=== PATIENT | female | born 1960 | race Caucasian/White ===

== ENCOUNTER 2024-10-16 07:42 | Day surgery (SDC) | payer MEDICARE, OTHER ==
[~2024-10-16] VITALS: Ht 172.7 cm; Wt 115.2 kg
[~2024-10-16 07:42] MED LIST: CO Q100C2 PO; D3 U5000 PO; FURO20TA2 PO; LEVO50TA5 PO; LIDOCAINE 2% 100MG/5ML SDV (FOR ANES.) As Ordered ONE; LOSA100T46 PO; MIDAZOLAM INJ 2MG/2ML VIAL As Ordered ONE; ONDANSETRON 4MG 2ML VIAL As Ordered ONE; VITA100024 PO; fentaNYL 100 MCG/2 ML INJECTION As Ordered ONE; propofoL 200 MG/20 ML VIAL As Ordered ONE
[2024-10-16] MEDS: ceFAZolin SOD 3 GM in DEXTROSE 5% (D5W) MINI-BAG PLU 1... IV ONE (09:48)
[2024-10-16] MEDS ORDERED: ACETAMINOPHEN 1000MG/100ML IV BAG As Ordered ONE (09:55)
[2024-10-16] MEDS: LIDOCAINE 2% 5ML JELLY UROJET As Ordered ONE (09:58)
[2024-10-16] MEDS ORDERED: ePHEDrine SULFATE 25 MG/5 ML(5MG/ML) SYRINGE As Ordered ONE (10:04)
[2024-10-16] MEDS: METHYLENE BLUE 0.5% (5MG/ML) 10 ML AMP (PROVAYBLUE) As Ordered ONE (10:04)
[2024-10-16] MEDS: ISOVUE-300 61% 100ML VIAL As Ordered ONE (10:04)
[2024-10-16 11:41] VITALS: BP 145/73; TEMP 96.4; O2SAT 95
[2024-10-16] MEDS ORDERED: ceFAZolin SOD 3 GM in DEXTROSE 5% (D5W) MINI-BAG PLU 1... IV ONE (14:15)
== END 2024-10-16 11:40 | disposition home or self-care (01) ==
LOC: M SDC 07:42
PROVIDERS: ATTEND Urology
DX: N82.0 Vesicovaginal fistula (principal); I10 Essential (primary) hypertension; E03.9 Hypothyroidism, unspecified; K21.9 Gastro-esophageal reflux disease without esophagitis; Z79.899 Other long term (current) drug therapy
CPT/HCPCS: 52005; 93005; A4215; C1769; J0131; J0690; J1100; J2250; J2405; J3010; Q9967; Q9968

== ENCOUNTER → 2024-11-24 | Day surgery (SDC) | payer MEDICARE, OTHER ==
[~2024-11-24] VITALS: Ht 172.7 cm; Wt 111.6 kg
[~2024-11-24] MED LIST changes: +ACETAMINOPHEN 1000MG/100ML IV BAG As Ordered ONE; +GLYCOPYRROLATE INJ 0.2 MG/ML 2 ML VIAL As Ordered ONE; +HEPARIN SOD (PORCINE) 5000UNITS/ML 1ML VIAL/SYRINGE SQ ONE; +KETOROLAC 30 MG/ML 1ML VIAL As Ordered ONE; +LR 1,000 ML IV SCH; +METOCLOPRAMIDE INJ 10MG/2ML VIAL As Ordered ONE; +ROCURONIUM BROMIDE 50MG/5ML VIAL As Ordered ONE; +SUGAMMADEX SODIUM 500 MG/5 ML VIAL (BRIDION) As Ordered ONE; +THERTAB52 PO; +ceFAZolin SOD 3 GM in DEXTROSE 5% (D5W) MINI-BAG PLU 1... IV ONE
[2024-11-24 11:13] VITALS: BP 149/74; TEMP 97.5; O2SAT 98
== END | disposition home or self-care (01) ==
LOC: M SDC 10:59
PROVIDERS: ATTEND Urology
DX: N82.0 Vesicovaginal fistula (principal); Z53.8 Procedure and treatment not carried out for other reasons
CPT/HCPCS: 36415; 86850; 86900; 86901; J0131; J1100; J1596; J1885; J2405; J2765

== ENCOUNTER 2024-12-31 09:45 | Day surgery (SDC) | payer MEDICARE, OTHER ==
[~2024-12-31] VITALS: Ht 172.7 cm; Wt 112.0 kg
[~2024-12-31 09:45] MED LIST changes: -GLYCOPYRROLATE INJ 0.2 MG/ML 2 ML VIAL As Ordered ONE; -HEPARIN SOD (PORCINE) 5000UNITS/ML 1ML VIAL/SYRINGE SQ ONE; -KETOROLAC 30 MG/ML 1ML VIAL As Ordered ONE; -METOCLOPRAMIDE INJ 10MG/2ML VIAL As Ordered ONE; -MIDAZOLAM INJ 2MG/2ML VIAL As Ordered ONE; -fentaNYL 100 MCG/2 ML INJECTION As Ordered ONE
[2024-12-31] MEDS ORDERED: MIDAZOLAM INJ 2MG/2ML VIAL As Ordered ONE (11:48)
[2024-12-31] MEDS ORDERED: fentaNYL 100 MCG/2 ML INJECTION As Ordered ONE (11:48)
[2024-12-31] MEDS ORDERED: PERCOCET 5MG/325MG TAB PO PRN (12:00)
[2024-12-31] MEDS: ceFAZolin SOD 2 GM IV ONCE IV ONE (12:15)
[2024-12-31] MEDS ORDERED: HYDROmorphone HCL 2MG/ML 1ML VIAL As Ordered ONE (12:39)
[2024-12-31] MEDS ORDERED: PHENYLephrine 500MCG 5ML (100MCG/ML) SYRINGE As Ordered ONE (12:43)
[2024-12-31] MEDS ORDERED: ePHEDrine SULFATE 25 MG/5 ML(5MG/ML) SYRINGE As Ordered ONE (12:43)
[2024-12-31] MEDS: HEPARIN SOD (PORCINE) 5000UNITS/ML 1ML VIAL/SYRINGE SQ ONE (12:47)
[2024-12-31] MEDS ORDERED: KETOROLAC 30 MG/ML 1ML VIAL As Ordered ONE (14:51)
[2024-12-31] MEDS ORDERED: fentaNYL 100 MCG/2 ML INJECTION IV PRN (15:00)
[2024-12-31] MEDS ORDERED: oxyCODONE 5MG TAB PO PRN (15:00)
[2024-12-31] MEDS ORDERED: ONDANSETRON 4MG 2ML VIAL IV PRN (15:00)
[2024-12-31] MEDS: LIDOCAINE 1% MDV 20ML VIAL As Ordered ONE (15:11)
[2024-12-31] MEDS ORDERED: HOME MED LIST COMPLETE! XX SCH (15:50)
[2024-12-31 15:59] LABS: HEMATOCRIT 38.5 % (36.0-47.0); HEMOGLOBIN 12.7 g/dl (12.0-15.5); MEAN CORPUSCULAR HEMOGLOBIN 29.1 pg (27.0-33.0); MEAN CORPUSCULAR VOLUME 88.3 fl (80.0-96.0); PLATELET COUNT, AUTOMATED 220 10^3/uL (150-450); RED BLOOD COUNT 4.36 10^6/uL (4.00-5.40); WHITE BLOOD COUNT 5.7 10^3/uL (4.0-10.0)
[2024-12-31] MEDS: NS 500 ML IV SCH (16:00)
[2024-12-31 16:15] VITALS: BP 137/69; TEMP 97; O2SAT 100
[2024-12-31 16:23] LABS: BLOOD UREA NITROGEN 16 MG/DL (9-23); CARBON DIOXIDE LEVEL 30 MMOL/L (20-31); CHLORIDE LEVEL 106 MMOL/L (98-107); GLOMERULAR FILTRATION RATE > 90.0 (>45); GLUCOSE, FASTING 133 MG/DL (74-106); POTASSIUM SERUM 4.1 MMOL/L (3.5-5.1); SODIUM LEVEL 142 MMOL/L (136-145)
[2024-12-31 16:45] VITALS: BP 113/68; TEMP 97.2; O2SAT 97
[2024-12-31 17:15] VITALS: BP 118/67; TEMP 97.2; O2SAT 91
[2024-12-31 18:15] VITALS: BP 108/65; TEMP 97.3; O2SAT 95
[2024-12-31] MEDS: ONDANSETRON 4MG 2ML VIAL IV PRN (19:10)
[2024-12-31 19:15] VITALS: BP 145/66; TEMP 97.5; O2SAT 95
[2024-12-31] MEDS: ceFAZolin SOD 1 GM in DEXTROSE 5% (D5W) ADV/MINI-BAG 50 ML IV SCH (20:12)
[2024-12-31] MEDS: HEPARIN SOD (PORCINE) 5000UNITS/ML 1ML VIAL/SYRINGE SC SCH (20:13)
[2024-12-31] MEDS: DOCUSATE SODIUM 100MG CAPSULE PO SCH (20:16)
[2024-12-31] MEDS: PERCOCET 5MG/325MG TAB PO PRN (20:16)
[2024-12-31 20:22] VITALS: BP 141/64; TEMP 97.5; O2SAT 90
[2025-01-01 01:15] VITALS: BP 121/59; TEMP 97; O2SAT 90
[2025-01-01 05:02] LABS: HEMATOCRIT 37.2 % (36.0-47.0); HEMOGLOBIN 12.2 g/dl (12.0-15.5); MEAN CORPUSCULAR HEMOGLOBIN 28.6 pg (27.0-33.0); MEAN CORPUSCULAR HGB CONC 32.8 g/dl (32.0-36.5); MEAN CORPUSCULAR VOLUME 87.1 fl (80.0-96.0); PLATELET COUNT, AUTOMATED 254 10^3/uL (150-450); RED BLOOD COUNT 4.27 10^6/uL (4.00-5.40)
[2025-01-01] MEDS: LEVOTHYROXINE 50MCG TABLET (0.05MG) PO SCH (05:05)
[2025-01-01] MEDS: ACETAMINOPHEN 325 MG TAB PO PRN (05:06)
[2025-01-01 05:15] VITALS: BP 128/67; TEMP 97.7; O2SAT 94
[2025-01-01 05:29] LABS: CALCIUM LEVEL 9.2 MG/DL (8.3-10.6); CREATININE FOR GFR 0.75 MG/DL (0.55-1.30); GLOMERULAR FILTRATION RATE 88.3 (>45); POTASSIUM SERUM 4.4 MMOL/L (3.5-5.1)
[2025-01-01 07:45] VITALS: BP 126/59
[2025-01-01] MEDS: LOSARTAN 50MG TABLET PO SCH (07:45)
[2025-01-01 08:00] VITALS: BP 126/59; TEMP 97.7; O2SAT 95
[2025-01-01] MEDS ORDERED: CIPR-249 PO (09:35)
[2025-01-01] MEDS ORDERED: COLA100C5 PO (09:35)
== END 2025-01-01 11:28 | disposition home or self-care (01) ==
LOC: M SDC 09:45 → M MSPAV 16:18 → M SDC 01-01 11:28
PROVIDERS: ATTEND Urology
DX: N82.0 Vesicovaginal fistula (principal); I10 Essential (primary) hypertension; E03.9 Hypothyroidism, unspecified; K21.9 Gastro-esophageal reflux disease without esophagitis; Z79.899 Other long term (current) drug therapy; Z79.890 Hormone replacement therapy; Z90.710 Acquired absence of both cervix and uterus
CPT/HCPCS: 36415; 51999; 80048; 85027; 86850; 86900; 86901; 88305; J0131; J0665; J0690; J1100; J1171; J1885; J2250; J2371; J2405; J3010